=== PATIENT | male | born 1970 | race Caucasian/White ===

== ENCOUNTER → 2016-07-29 | Outpatient (CLI) | payer BC | END | disposition home or self-care (01) | LOC: PCVCIMAG 10:32 | PROVIDERS: ATTEND Internal Medicine Cardiovascular Disease | DX: I25.10 Atherosclerotic heart disease of native coronary artery without angina pectoris (principal); I10 Essential (primary) hypertension; E78.00 Pure hypercholesterolemia, unspecified; Z95.1 Presence of aortocoronary bypass graft | CPT/HCPCS: 93325; 93351 ==

== ENCOUNTER → 2019-02-20 | Outpatient (CLI) | payer BC ==
--- NOTE | 2019-02-20 11:48 | PCVCIMAG ---
APPROVED REPORT Study performed: 02/20/2019 10:51:09 Exam: Stress Echocardiogram Indication: CAD s/p CABG Patient Location: Echo lab Stress Nurse: Sunshine Clark RN Status: routine Ht: 6 ft 2 in HR: 78 bpm BP: 140/104 mmHg Rhythm: NSR Medical History Medical History: CAD s/p CABG, Hyperlipidemia, HTN Procedure The patient underwent an Exercise Stress Test using the Lyndon Protocol. Blood pressure, heart rate, and EKG were monitored. An Echocardiogram was performed by cooling tower technician in four stages in quad fashion. At peak stress, four selected images were obtained and placed side by side with resting images for comparison. Stress Test Details Stress Test: Exercise stress testing was performed using a Lyndon protocol. HR Resting HR: 78 bpmMax Heart Rate (APMHR): 171 bpm Max HR Achieved: 148 bpmTarget HR (85% APMHR): 145 bpm % of APMHR: 86 Recovery HR: 96 bpm HR response to stress: Normal HR response to stress BP Resting BP: 140/104 mmHg Max BP: 200/120 mmHg Recovery BP: 146//88 mmHg BP response to stress: Abnormal hypertensive response to stress. ECG Resting ECG: Sinus Rhythm Stress ECG: Sinus Rhythm Recovery ECG: Sinus Rhythm Clinical Reason for Termination: Maximal effort Exercise duration: 10 min 32 sec Highest Stage Achieved: Stage 4: 4.2 mph at 16% grade. Exercise capacity: 13.70 METs Overall Exercise Capacity for Age: Normal Pre-Stress Echo The resting Echocardiogram showed normal left ventricular contractility with an estimated Ejection Fraction of about 55-60%. Normal wall motion in all segments on baseline images. Post-Stress Echo The stress Echocardiogram showed normal left ventricular contractility with an estimated Ejection Fraction of about 65-70%. Normal augmentation of wall motion in all segments on post stress images. Clinical No clinical or ECG evidence for ischemia. Conclusion Clinical Response: Non-ischemic Exercise Capacity: Average Stress ECG Response: Non-ischemic Stress Echo Images: Non-ischemic The left ventricle is normal in size and wall thickness in both the rest and stress images. Other Information Study Quality: Good <Conclusion> The left ventricle is normal in size and wall thickness in both the rest and stress images.
== END | disposition home or self-care (01) ==
LOC: PCVCIMAG 10:21
PROVIDERS: ATTEND Internal Medicine Cardiovascular Disease
DX: I25.10 Atherosclerotic heart disease of native coronary artery without angina pectoris (principal); I10 Essential (primary) hypertension; E78.00 Pure hypercholesterolemia, unspecified; E78.1 Pure hyperglyceridemia; Z95.1 Presence of aortocoronary bypass graft
CPT/HCPCS: 93325; 93351